=== PATIENT | female | born 1985 | race Two or more races ===

== ENCOUNTER 2022-10-28 16:43 | Emergency (ER) | payer MEDICAID, OTHER ==
[~2022-10-28] VITALS: Ht 154.9 cm; Wt 65.7 kg
[2022-10-28 17:25] LABS: Urine Bacteria NONE SEEN /hpf (None Seen); Urine Blood Negative /uL (Negative); Urine Specific Gravity 1.031 (1.001-1.035); Urine WBC 1 /hpf (0 - 5)
[2022-10-28] MEDS ORDERED: NITR-52 PO (17:35)
[2022-10-28 18:46] VITALS: BP 101/53
== END 2022-10-28 18:49 | disposition home or self-care (01) ==
LOC: ER 16:43
DX: N39.0 Urinary tract infection, site not specified (principal)
CPT/HCPCS: 81001; 81025